=== PATIENT | male | born 1990 | race African-American/Black ===

== ENCOUNTER 2021-11-27 14:41 | Emergency (ER) | payer MEDICAID ==
[~2021-11-27] VITALS: Ht 188 cm; Wt 73.0 kg
[2021-11-27] MEDS ORDERED: ONDANSETRON HCL 4MG/2ML INJ IV STA (15:13)
[2021-11-27] MEDS ORDERED: FAMOTIDINE 20MG/2ML VIAL IV STA (15:13)
[2021-11-27] MEDS ORDERED: SODIUM CHLORIDE 0.9% 1,000 ML IV ONE (15:15)
[2021-11-27 16:20] LABS: CLARITY URINE CLOUDY (CLEAR); COLOR URINE DARK YELLOW (YELLOW); KETONES URINE 1+ (NEGATIVE); LEUKOCYTE ESTERASE URINE NEGATIVE (NEGATIVE); NITRITE URINE NEGATIVE (NEGATIVE); OCCULT BLOOD URINE NEGATIVE (NEGATIVE); PROTEIN URINE TRACE (NEGATIVE); SPECIFIC GRAVITY URINE 1.026 (1.005-1.030)
[2021-11-27 16:31] LABS: *AMPHETAMINES SCREEN URINE PRESUMTIVE POSITIVE (NEGATIVE); *BARBITURATES SCREEN URINE NEGATIVE (NEGATIVE); *BENZODIAZEPINES SCREEN URINE PRESUMTIVE POSITIVE (NEGATIVE); *COCAINE SCREEN URINE NEGATIVE (NEGATIVE); CANNABINOID URINE SCREEN PRESUMTIVE POSITIVE (NEGATIVE); METHADONE URINE SCREEN NEGATIVE (NEGATIVE); PHENCYCLIDINE URINE SCREEN NEGATIVE (NEGATIVE)
[2021-11-27 16:35] LABS: OPIATES URINE SCREEN NEGATIVE (NEGATIVE)
[2021-11-27 16:43] LABS: BASOPHILS % 0.8 % (0.0-2.0); EOSINOPHILS % 0.5 % (0.0-5.0); HEMATOCRIT. 37.4 % (42.0-52.0); LYMPHOCYTES % 36.1 % (20.0-50.0); MEAN CORPUSCULAR HEMOGLOBIN 33.8 pg (28.0-32.0); MEAN CORPUSCULAR VOLUME 96.9 fL (80.0-94.0); MEAN PLATELET VOLUME 7.7 fl (7.4-10.4); MONOCYTES % 8.5 % (2.0-8.0); NEUTROPHILS % 54.1 % (40.0-76.0); PLATELET 156 x1000/uL (130-400); RED BLOOD CELL COUNT 3.86 mill/uL (4.7-6.1); RED CELL DISTRIBUTION WIDTH 19.6 % (11.6-14.6)
[2021-11-27 16:48] LABS: CHLORIDE 103 mEq/L (98-107)
[2021-11-27 16:52] LABS: ETHANOL BLOOD 204 mg/dL
[2021-11-27] MEDS ORDERED: FOLIC ACID 1 MG, THIAMINE HCL 100 MG, MVI, ADULT NO.1 10 ML in DEXTROSE 5% WATER 1,000 ML IV ONE ×4 (17:30)
[2021-11-27] MEDS ORDERED: OMEP20CA14 MT (20:07)
[2021-11-27] MEDS ORDERED: CHLO5CAP3 MT (20:07)
[2021-11-27] MEDS ORDERED: ONDA4TAB11 PO (20:07)
[2021-11-27 21:30] VITALS: BP 137/77
== END 2021-11-27 21:33 | disposition home or self-care (01) ==
LOC: ER 16:00
DX: G92.9 Unspecified toxic encephalopathy (principal); F10.129 Alcohol abuse with intoxication, unspecified; R79.89 Other specified abnormal findings of blood chemistry; I49.9 Cardiac arrhythmia, unspecified; Z86.59 Personal history of other mental and behavioral disorders; Y90.7 Blood alcohol level of 200-239 mg/100 ml
CPT/HCPCS: 36415; 80053; 80305; 80320; 81003; 82962; 83690; 85025; 93005; 96361; 96365; 96375; 99284; J2405; J3411; J3490; J7030; J7070; Z7610; G0480